=== PATIENT | male | born 1995 | race Caucasian/White ===

== ENCOUNTER 2016-06-25 11:18 | Emergency (ER) | payer SELFPAY ==
--- NOTE | 2016-06-25 18:34 | ER ---
ADMIT: 06/25/2016 RM/LOC: [facility] MR#: [id number] [address] [id number] [place] LUA [address] [place] [address] Emergency Room Report SEX: M AGE: 21 : 1995 DATE: 06/25/2016 ADDENDUM: A 21-year-old male coming in with a little anxiety. He is not hyperventilating. He has had this several times over the last year. He goes out, he drinks and then in the morning, he wakes up and starts to shake. He does not drink everyday, this is not withdrawal seizures. This appears to be more anxiety disorder that is brought on after he has abused alcohol a little bit through that night. At this time, I gave him three Xanax 0.25 to be used as needed one p.o. daily. Also, referred to [facility] for counseling and maybe a little bit more on the anxiety treatment. So advised, understands. CONDITION ON DISCHARGE: Fair. Miguel Angel Hyde MD/ matheus JOB #: [id number] CC: Miguel Angel Hyde MD, Attending Physician Kenneth Valenzuela MD, Family Physician
--- NOTE | 2016-06-26 12:53 | NUR ---
Pt triggered as a high ED user. Called and spoke with pt. He states he is doing really well. Does not have a PCP at this time. Has contact information for [facility]. Gave pt information on [facility]. Not really interested in going [place] [facility] [place] time. Deny any needs at this time.
== END 2016-06-25 12:57 | disposition home or self-care (01) ==
LOC: ER 11:18
DX: F10.20 Alcohol dependence, uncomplicated (principal); F41.9 Anxiety disorder, unspecified; Z88.0 Allergy status to penicillin